=== PATIENT | female | born 1985 | race Caucasian/White ===

== ENCOUNTER 2018-01-16 09:58 | Inpatient (IN) | END 2018-01-17 17:00 | disposition home or self-care (01) | DRG 392 ==

== ENCOUNTER 2018-12-31 03:05 | Emergency (ER) | payer MEDICAID ==
[~2018-12-31] VITALS: Ht 160 cm; Wt 93.3 kg
[~2018-12-31 03:05] MED LIST: CIPR500T4 PO; METR500T PO
[2018-12-31 03:09] VITALS: Ht 160 cm; Wt 93.3 kg
[2018-12-31] MEDS ORDERED: SOD CHLORIDE 0.9% 1,000 ML IV STA (04:10)
[2018-12-31] MEDS ORDERED: morphine 4 MG/ML VIAL IV STA ×2 (04:10→05:00)
[2018-12-31] MEDS ORDERED: ONDANSETRON 4 MG INJ IV STA (04:10)
[2018-12-31 05:50] VITALS: BP 164/110; PULSE 89; RESP 18
[2018-12-31] MEDS ORDERED: FAMOTIDINE 20 MG TAB PO ONE (06:00)
[2018-12-31] MEDS ORDERED: AMLO5TAB4 PO (06:05)
[2018-12-31] MEDS ORDERED: FAMO-96 PO (06:05)
--- NOTE | 2018-12-31 06:11 | ERD ---
ER Documentation Chief Complaint Chief Complaint L upper AP pain below L breast HPI 33-year-old female with a history of diverticulitis, who recently presented December 26 to the ER for abdominal pain and was diagnosed with diverticulitis, is presenting with left-sided upper abdominal pain, epigastric pain, and left lower quadrant pain. The pain is aching, severe, 10 out of 10, radiating across her left abdomen and flank. She had one episode of associated vomiting. No fevers or chills. No dysuria, hematuria, chest pain, shortness of breath, headache, or dizziness. No focal weakness or numbness. She is aware that she has hypertension but is not being treated as she has no primary care doctor. Currently she is taking Cipro and Flagyl and feels that her diverticulitis symptoms have been improving until today. ROS All systems reviewed and are negative except as per history of present illness. Medications Home Meds Active Scripts Amlodipine Besylate* (Norvasc*) 5 Mg Tablet, 5 MG PO DAILY, #30 TAB Prov:WHIT FLORES MD 12/31/18 Famotidine* (Pepcid*) 20 Mg Tablet, 20 MG PO BID for 10 Days, TAB Prov:WHIT FLORES MD 12/31/18 Metronidazole* (Flagyl*) 500 Mg Tablet, 500 MG PO TID for 10 Days, TAB Prov:JUAN HEARN MD 12/26/18 Ciprofloxacin Hcl* (Ciprofloxacin Hcl*) 500 Mg Tablet, 500 MG PO BID for 10 Days, TAB Prov:JUAN HEARN MD 12/26/18 Discontinued Scripts Metoprolol Tartrate* (Lopressor*) 25 Mg Tab, 25 MG PO BID for 30 Days, #60 TAB 2 Refills Prov:MONSE,BOLATITO M. 01/17/18 Docusate Sodium (Dok) 100 Mg Capsule, 100 MG PO BID for 30 Days, #60 CAP Prov:MONSE,BOLATITO M. 01/17/18 Hydrochlorothiazide* (Hydrochlorothiazide*) 25 Mg Tab, 25 MG PO DAILY for 30 Days, #30 TAB 2 Refills Prov:MONSE,BOLATITO M. 01/17/18 Metronidazole* (Flagyl*) 500 Mg Tablet, 500 MG PO Q8 for 7 Days, TAB Prov:MONSE,BOLATITO M. 01/17/18 Ciprofloxacin Hcl* (Ciprofloxacin Hcl*) 500 Mg Tablet, 500 MG PO BID, #14 TAB Prov:REINALDO SHEA. 01/17/18 Allergies Allergies: Coded Allergies: No Known Allergy (Unverified , 12/26/18) PMhx/Soc Medical and Surgical Hx: pt denies Medical Hx, pt denies Surgical Hx History of Surgery: No Anesthesia Reaction: No (NEVER HAD SURGERY ) Hx Neurological Disorder: No Hx Respiratory Disorders: No Hx Cardiac Disorders: No Hx Psychiatric Problems: No Hx Miscellaneous Medical Probl: Yes (Diverticulitis) Hx Alcohol Use: No Hx Substance Use: No Hx Tobacco Use: No Smoking Status: Never smoker FmHx Family History: No diabetes Physical Exam Vitals Vital Signs Date Temp Pulse Resp B/P (MAP) Pulse Ox O2 O2 Flow FiO2 Time Delivery Rate 12/31/18 89 18 164/110 100 Room Air 05:50 (128) 12/31/18 93 18 177/102 100 Room Air 05:25 (127) 12/31/18 90 18 191/116 100 Room Air 05:00 (141) 12/31/18 245/132 03:10 (169) 12/31/18 98.2 99 20 232/132 100 03:09 (165) Physical Exam Const: No acute distress Head: Atraumatic Eyes: Normal Conjunctiva ENT: Normal External Ears, Nose and Mouth. Neck: Full range of motion. No meningismus. Resp: Clear to auscultation bilaterally Cardio: Regular rate and rhythm, no murmurs. 2+ radial, DP, and PT pulses normal bowel sounds Abd: Soft, non distended. Left lower quadrant and epigastric tenderness to palpation with no rebound or guarding. No pulsatile mass Skin: No petechiae or rashes Back: No midline or flank tenderness Ext: No cyanosis, or edema Neur: Awake and alert Psych: Normal Mood and Affect Result Diagram: 12/31/1840912/31/18409 Results 24 hrs Laboratory Tests Test 12/31/18 04:02 12/31/18 04:04 12/31/18 04:10 Bedside Urine pH (LAB) 6.5 Bedside Urine Protein (LAB) Trace Bedside Urine Glucose (UA) Negative Bedside Urine Ketones (LAB) Negative Bedside Urine Blood 1+ Bedside Urine Nitrite (LAB) Negative Bedside Urine Leukocyte Esterase Trace (L POC Beta HCG, Qualitative NEGATIVE White Blood Count 10.3 10^3/ul Red Blood Count 4.95 10^6/ul Hemoglobin 13.1 g/dl Hematocrit 40.3 % Mean Corpuscular Volume 81.4 fl Mean Corpuscular Hemoglobin 26.5 pg Mean Corpuscular 32.5 g/dl Hemoglobin Concent Red Cell Distribution Width 12.3 % Platelet Count 468 10^3/UL Mean Platelet Volume 8.7 fl Immature Granulocytes % 0.400 % Neutrophils % 75.5 % Lymphocytes % 16.8 % Monocytes % 5.9 % Eosinophils % 1.0 % Basophils % 0.4 % Nucleated Red Blood Cells % 0.0 /100WBC Immature Granulocytes # 0.040 10^3/ul Neutrophils # 7.8 10^3/ul Lymphocytes # 1.7 10^3/ul Monocytes # 0.6 10^3/ul Eosinophils # 0.1 10^3/ul Basophils # 0.0 10^3/ul Nucleated Red Blood Cells # 0.0 10^3/ul Urine Color YELLOW Urine Clarity CLOUDY Urine pH 6.0 Urine Specific [place] 1.017 Urine Ketones NEGATIVE mg/dL Urine Nitrite NEGATIVE mg/dL Urine Bilirubin NEGATIVE mg/dL Urine Urobilinogen NEGATIVE mg/dL Urine Leukocyte Esterase TRACE Ray/ul Urine Microscopic RBC 8 /HPF Urine Microscopic WBC 7 /HPF Urine Squamous Epithelial Cells FEW /HPF Urine Calcium Oxalate Crystals MODERATE /HPF Urine Hemoglobin 1+ mg/dL Urine Glucose 1+ mg/dL Urine Total Protein NEGATIVE mg/dl Sodium Level 142 mmol/L Potassium Level 3.5 mmol/L Chloride Level 104 mmol/L Carbon Dioxide Level 28 mmol/L Anion Gap 10 Blood Urea Nitrogen 9 mg/dl Creatinine 0.62 mg/dl Est Glomerular Filtrat > 60 mL/min Rate mL/min Glucose Level 164 mg/dl Calcium Level 9.8 mg/dl Total Bilirubin 0.0 mg/dl Direct Bilirubin 0.00 mg/dl Indirect Bilirubin 0.0 mg/dl Aspartate Amino Transf (AST/SGOT) 70 IU/L Alanine 67 IU/L Aminotransferase (ALT/SGPT) Alkaline Phosphatase 74 IU/L Troponin I < 0.012 ng/ml Total Protein 8.3 g/dl Albumin 4.8 g/dl Globulin 3.50 g/dl Albumin/Globulin Ratio 1.37 Lipase 70 U/L Current Medications Medications Dose Sig/Elizabeth Start Time Status Last (Trade) Ordered Route PRN Stop Time Admin Dose Reason Admin Sodium 1,000 ml @ Q1H STAT 12/31/18 DC 12/31/18 Chloride 1,000 mls/hr IV 04:10 04:17 12/31/18 05:09 Morphine 4 mg ONCE STAT 12/31/18 DC 12/31/18 Sulfate IV 04:10 04:17 (morphine) 12/31/18 04:11 Ondansetron 4 mg ONCE STAT 12/31/18 DC 12/31/18 HCl (Zofran IV 04:10 04:17 Inj) 12/31/18 04:11 Morphine 4 mg ONCE STAT 12/31/18 DC 12/31/18 Sulfate IV 05:00 05:03 (morphine) 12/31/18 05:01 Famotidine 20 mg ONCE ONCE 12/31/18 DC 12/31/18 (Pepcid) PO 06:00 05:54 12/31/18 06:01 Procedures/MDM EMERGENT LABS AND DIAGNOSTIC STUDIES: Lab Results above were reviewed and interpreted by me. CBC: No leukocytosis. Improved from 12/26/2018. Elevated platelets, likely secondary to acute infection CMP: No evidence of electrolyte abnormality, renal failure, hypoglycemia, liver failure, or biliary obstruction Lipase: no evidence of pancreatitis Troponin within normal limits, not indicative of cardiac ischemia negative. UA: no evidence of infection 12-lead EKG was interpreted by Yasmeen Flores MD: Normal Sinus Rhythm Rightward axis Normal intervals No acute ST or T wave changes suggestive of acute ischemia or STEMI. Radiology Results as interpreted by Radiology below were reviewed by SKatharina Flores MD: CT Abd/Pel: Uncomplicated diverticulitis Initial Nursing notes reviewed. Previous Medical Records requested via the Electronic Health Record. EMERGENCY DEPARTMENT COURSE / MEDICAL DECISION MAKING: Patient is presenting with left-sided abdominal pain and vitals notable for severe hypertension. I considered aortic dissection and AAA, but I have a low suspicion for these. I doubt ischemic bowel. CT was done to evaluate for possible nephrolithiasis, however the CT only showed mild diverticulitis without evidence of abscess or perforation. Patient was treated with IV fluids, antiemetics, and analgesics with improvement of her symptoms. I suspect that some of her symptoms may be secondary to gastritis as she is taking her an tibiotics without food. I recommended she start taking her antibiotics with food. Since she has no primary care doctor, we will start her on amlodipine for her hypertension. I will start her on Pepcid as well for possible gastritis. Return precautions were discussed. Patient's blood pressure was elevated (>120/80) but appears stable without evidence of hypertensive emergency or urgency. The patient was counseled about the risks of hypertension and urged to pursue outpatient monitoring and therapy within a week with their primary care physician. Departure Diagnosis: Primary Impression: Diverticulitis Additional Impressions: Hypertensive urgency Gastritis Gastritis type: unspecified gastritis Chronicity: acute Gastritis bleeding: presence of bleeding unspecified Qualified Codes: K29.00 - Acute gastritis without bleeding Condition: Stable Patient Instructions: Diverticulitis, Gastritis (Adult), Hypertension, New (Begin Treatment) Referrals: [facility] YOU HAVE RECEIVED A MEDICAL SCREENING EXAM AND THE RESULTS INDICATE THAT YOU DO NOT HAVE A CONDITION THAT REQUIRES URGENT TREATMENT IN THE EMERGENCY DEPARTMENT. FURTHER EVALUATION AND TREATMENT OF YOUR CONDITION CAN WAIT UNTIL YOU ARE SEEN IN YOUR DOCTORS OFFICE WITHIN THE NEXT 1-2 DAYS. IT IS YOUR RESPONSIBILITY TO MAKE AN APPOINTMENT FOR FOLOW-UP CARE. IF YOU HAVE A PRIMARY DOCTOR --you should call your primary doctor and schedule an appointment IF YOU DO NOT HAVE A PRIMARY DOCTOR YOU CAN CALL OUR PHYSICIAN REFERRAL HOTLINE AT IF YOU CAN NOT AFFORD TO SEE A PHYSICIAN YOU CAN CHOSE FROM THE FOLLOWING [facility] [address] [facility] [address] [facility] [address] [facility] [address] [facility] [facility] [address] [facility]. [facility] [address] Additional Instructions: Return to the ER for any worsening symptoms. WHIT FLORES MD Dec 31, 2018 06:11
== END 2018-12-31 06:32 | disposition home or self-care (01) ==
LOC: E/R 03:05
DX: K57.32 Diverticulitis of large intestine without perforation or abscess without bleeding (principal); R40.2142 Coma scale, eyes open, spontaneous, at arrival to emergency department; R40.2362 Coma scale, best motor response, obeys commands, at arrival to emergency department; R40.2252 Coma scale, best verbal response, oriented, at arrival to emergency department; I16.0 Hypertensive urgency; K29.00 Acute gastritis without bleeding
CPT/HCPCS: 36415; 74176; 80053; 81001; 81025; 83690; 84484; 85025; 93005; 96374; 96375; J2270; J2405; J7030; Z7502; Z7610; 81003